=== PATIENT | female | born 1975 | race Caucasian/White ===

== ENCOUNTER 2018-01-08 16:16 | Emergency (ER) | payer MEDICAID ==
[2018-01-08 16:25] VITALS: RESP 16; TEMP 98.1
[2018-01-08] MEDS ORDERED: HYDROmorphONE/DILAUDID 2 MG/ML INJ ONE (17:23)
[2018-01-08] MEDS ORDERED: NS 1,000 ML IV ONE (17:24)
[2018-01-08] MEDS ORDERED: HYDROmorphONE/DILAUDID 1 MG/ML INJ IVP ONE (17:24)
[2018-01-08 17:26] LABS: PLATELET COUNT 299 10^3/uL (150-400)
--- NOTE | 2018-01-08 17:28 | EDPHY ---
H & P Time Seen by Provider: 01/08/18 16:39 HPI/ROS: CHIEF COMPLAINT: Headache, dizziness, double vision HISTORY OF PRESENT ILLNESS: 42-year-old female presents to the emergency department with 2-3 week history of gradual onset of headache. Patient states that she was having some visual changes and gradual onset of a headache about 2 or 3 weeks ago. She saw an improvement engineer who did an eye exam and she states since that time her symptoms have gotten worse. She complains of double vision. She feels very dizzy. She has a worsening frontal and left-sided headache. She denies abrupt onset or thunderclap type onset of her headache. She has had headaches like this in the past, however never this severe. She is photophobic. She does feel nauseous. Her says that she has been confused at times. She saw an manager rfid today who recommended that she come to the emergency department for an MRI of her brain and her orbits. The patient does have a known history of Meniere's disease. She does states that this feels different. No fevers or chills. No neck pain. No chest pain or difficulty breathing. No abdominal pain. REVIEW OF SYSTEMS: Constitutional: No fever, no chills. Eyes: Double vision, blurry vision. ENT: No sore throat. Respiratory: No cough, no shortness of breath. Cardiac: No chest pain. Gastrointestinal: No abdominal pain, vomiting or diarrhea. Genitourinary: No dysuria. Musculoskeletal: No neck or back pain. Skin: No rashes. Neurological: headache. Past Medical/Surgical History: Many years disease, PTSD, migraine headaches, seizures 7 years ago x1 Social History: and lives in [place] Smoking Status: Never smoked Physical Exam: General Appearance: Alert, no distress. Mentating normally and answering questions appropriately. She is resting a darkened room. Eyes: Pupils equal and round. Extraocular motions are all intact. Pupils are large and dilated from her recent exam by the manager rfid this afternoon. No nystagmus. The patient is very photophobic so it is difficult to get a good exam. ENT: Mouth: Mucous membranes moist. Respiratory: No wheezing, rhonchi, or rales, lungs are clear to auscultation. Cardiovascular: Regular rate and rhythm. Gastrointestinal: Abdomen is soft and nontender, no masses, no rebound or guarding, bowel sounds normal. Neurological: Alert and oriented x 3, cranial nerves II through XII grossly intact Skin: Warm and dry, no rashes. Musculoskeletal: Nontender to palpate along the cervical, thoracic or lumbar spine. Neck is supple. Extremities: Full range of motion and no peripheral edema. Psychiatric: Patient is oriented X 3, there is no agitation. Constitutional: Initial Vital Signs Temperature (C) 36.7 C 01/08/18 16:20 Heart Rate 90 01/08/18 16:20 Respiratory Rate 16 01/08/18 16:20 Blood Pressure 117/82 H 01/08/18 16:20 O2 Sat (%) 96 01/08/18 16:20 O2 Delivery Mode Room Air Allergies/Adverse Reactions: levofloxacin [From Levaquin] Allergy (Verified 01/08/18 16:25) Medical Decision Making - Diagnostics Imaging Results: Imaging Impressions Orbits/Face/Neck MRI 01/08/18 17:31 Impression: Normal MR of the brain and orbits, without and with contrast enhancement. Findings discussed with Jolanta Jaquez PA-C, on January 08, 2018 at 1853. Imaging: Discussed imaging studies w/ education and development manager Radiologist ED Course/Re-evaluation: 42-year-old female presents to the emergency department with headache, dizziness , and diplopia. Patient has a known history of migraine headaches although she has never had symptoms quite like this in the past. She has been seen by an improvement engineer, primary care provider and today was seen by an manager rfid. Her manager rfid, Dr. Vazquez, recommended MRI of the brain. MRI without and with contrast was obtained which was reportedly normal. Patient was given migraine cocktail of Toradol, IV Decadron, IV Benadryl, and IV Reglan. Patient was observed and was feeling much better. Her headache was resolving. The patient also tells me that she was weaned off all of her psychiatric medications including Lamictal just a few months ago. I did encourage her to have close some close follow-up with her psychiatrist. She was also instructed to return to the emergency department sooner if she developed any change in symptoms or if she felt worse in any way. Patient was comfortable with this plan. The case was discussed with Dr. Jazmin Mata, secondary supervising physician, who did not directly evaluate the patient but agrees with treatment and plan. Differential Diagnosis: Headache including but not limited to subarachnoid hemorrhage, migraine headache , tension headache and infectious causes such as meningitis, pharyngitis and sinusitis. Dizziness including but not limited to peripheral and central causes of vertigo , orthostatic causes including dehydration, and blood loss. - Data Points Laboratory Results: Laboratory Results 01/08/18 16:55 01/08/18 16:55 01/08/18 01/08/18 01/08/18 16:55 16:55 16:55 WBC 8.44 10^3/uL 10^3/uL (3.80-9.50) RBC 4.73 10^6/uL 10^6/uL (4.18-5.33) Hgb 14.2 g/dL g/dL (12.6-16.3) Hct 42.4 % % (38.0-47.0) MCV 89.6 fL fL (81.5-99.8) MCH 30.0 pg pg (27.9-34.1) MCHC 33.5 g/dL g/dL (32.4-36.7) RDW 13.5 % % (11.5-15.2) Plt Count 299 10^3/uL 10^3/uL (150-400) MPV 9.6 fL fL (8.7-11.7) Neut % (Auto) 56.3 % % (39.3-74.2) Lymph % (Auto) 27.6 % % (15.0-45.0) [place] % (Auto) 8.4 % % (4.5-13.0) Eos % (Auto) 5.8 % % (0.6-7.6) Baso % (Auto) 0.8 % % (0.3-1.7) Nucleat RBC Rel Count 0.0 % % (0.0-0.2) Absolute Neuts (auto) 4.75 10^3/uL 10^3/uL (1.70-6.50) Absolute Lymphs (auto) 2.33 10^3/uL 10^3/uL (1.00-3.00) Absolute Monos (auto) 0.71 10^3/uL 10^3/uL (0.30-0.80) Absolute Eos (auto) 0.49 10^3/uL H 10^3/uL (0.03-0.40) Absolute Basos (auto) 0.07 10^3/uL 10^3/uL (0.02-0.10) Absolute Nucleated RBC 0.00 10^3/uL 10^3/uL (0-0.01) Immature Gran % 1.1 % % (0.0-1.1) Immature Gran # 0.09 10^3/uL 10^3/uL (0.00-0.10) Sodium 140 mEq/L mEq/L (135-145) Potassium 4.4 mEq/L mEq/L (3.5-5.2) Chloride 102 mEq/L mEq/L (97-110) Carbon Dioxide 28 mEq/l mEq/l (22-31) Anion Gap 10 mEq/L mEq/L (8-16) BUN 15 mg/dL mg/dL (7-23) Creatinine 0.7 mg/dL mg/dL (0.6-1.0) Estimated GFR > 60 Glucose 78 mg/dL mg/dL (70-100) Calcium 9.3 mg/dL mg/dL (8.5-10.4) Beta HCG, Qual NEGATIVE Medications Given: Discontinued Medications Dexamethasone (Decadron Injection) 10 mg IVP EDNOW ONE Stop: 01/08/18 19:04 Last Admin: 01/08/18 19:14 Dose: 10 mg Diphenhydramine HCl (Benadryl Injection) 25 mg IVP EDNOW ONE Stop: 01/08/18 19:04 Last Admin: 01/08/18 19:14 Dose: 25 mg Hydromorphone HCl (Dilaudid) 0.5 mg IVP EDNOW ONE Stop: 01/08/18 17:25 Last Admin: 01/08/18 17:29 Dose: 0.5 mg Sodium Chloride (Ns) 1,000 mls @ 3,000 mls/hr IV ONCE ONE Stop: 01/08/18 17:43 Last Admin: 01/08/18 17:28 Dose: 1,000 mls Ketorolac Tromethamine (Toradol) 30 mg IVP EDNOW ONE Stop: 01/08/18 19:04 Last Admin: 01/08/18 19:31 Dose: 30 mg Metoclopramide HCl (Reglan Injection) 10 mg IVP EDNOW ONE Stop: 01/08/18 19:04 Last Admin: 01/08/18 19:31 Dose: 10 mg Departure - Departure Disposition: Home, Routine, Self-Care Clinical Impression: Diplopia Headache Qualifiers: Headache type: unspecified Headache chronicity pattern: chronic headache Intractability: not intractable Qualified Code(s): R51 - Headache Condition: Good Instructions: Migraine Headache (ED), Diplopia (ED) Additional Instructions: Follow-up with your neurologist regarding her ongoing headache. Yourr MRI of your brain was normal. Also follow up with your psychiatrist regarding your mental health medications. Referrals: [facility] [Other] - As per Instructions Messi Beaver DO [Medical Doctor] - As per Instructions (Neurologist in [place])
[2018-01-08] MEDS ORDERED: GADOBUTROL 10 ML VIAL IVP ONE (17:46)
[2018-01-08] MEDS ORDERED: METOCLOPRAMIDE 10 MG/2 ML VIAL IVP ONE (19:03)
[2018-01-08] MEDS ORDERED: DEXAMETHASONE 10 MG/ML VIAL IVP ONE (19:03)
[2018-01-08] MEDS ORDERED: KETOROLAC 30 MG/1 ML SDV IVP ONE (19:03)
[2018-01-08 20:14] VITALS: BP 132/74; PULSE 79; O2SAT 94
== END 2018-01-08 20:11 | disposition home or self-care (01) ==
DX: H53.2 Diplopia (principal)
CPT/HCPCS: 96374; A9585; J1100; J1170; J1200; J1885; J2765